=== PATIENT | female | born 1930 | race Caucasian/White ===

== ENCOUNTER → 2016-12-08 | Outpatient (CLI) | payer MEDICARE, BC ==
[~2016-12-08] MED LIST: TYLENOL 325MG325 MG PO
[2016-12-08 16:05] LABS: ADJUSTED CALCIUM 9.4 mg/dL (8.4-10.2); ALBUMIN 3.7 gm/dL (3.5-5.0); BILIRUBIN,TOTAL 1.3 mg/dL (0.0-1.0); CALCIUM 9.2 mg/dL (8.4-10.2); CREATININE, serum 0.9 mg/dL (0.52-1.25); POTASSIUM 3.7 mmol/L (3.4-5.0); TOTAL PROTEIN 7.2 gm/dL (6.4-8.2)
[2016-12-08 16:16] LABS: BASO # 0.1 (0.0-0.2); BASO % 0.6 % (0.0-2.0); EOS % 0.1 % (0-4.0); GRAN # 6.4 (1.4-6.5); GRAN % 74.6 % (42.2-75.2); HEMATOCRIT 38.2 % (37.0-47.0); LYMPH % 11.2 % (20.0-51.0); MEAN CELL VOLUME 95 fl (80.0-100.0); MEAN CORPUSCULAR HEMOGLOBIN 32 pg (27.0-31.0); MEAN CORPUSCULAR HGB CONC 34 g/dl (33.0-37.0); MEAN PLATELET VOLUME 10.6 fl (7.4-10.4); MONO # 1.1 (0.1-0.6); MONO % 12.6 % (1.7-9.3); PLATELET COUNT 130 K/mm3 (130-400); RED BLOOD COUNT 4.02 M/mm3 (4.10-5.30); REDCELL DISTRIBUTION WIDTH-CV 13.8 % (11.5-14.5); WHITE BLOOD COUNT 8.5 K/mm3 (4.8-10.8)
== END ==
LOC: COL.RAD 14:33
PROVIDERS: Nurse Practitioner Family
DX: Z02.89 Encounter for other administrative examinations (principal)

== ENCOUNTER 2016-12-09 17:57 | Inpatient (IN) | payer MEDICARE, BC ==
[~2016-12-09] VITALS: Ht 167.6 cm; Wt 67.9 kg
[2016-12-09 19:03] LABS: HEMATOCRIT 38.1 % (37.0-47.0); HEMOGLOBIN 13.1 g/dl (12.5-16.0); MEAN CELL VOLUME 93 fl (80.0-100.0); MEAN CORPUSCULAR HEMOGLOBIN 32 pg (27.0-31.0); MEAN CORPUSCULAR HGB CONC 34 g/dl (33.0-37.0); PLATELET COUNT 131 K/mm3 (130-400); RED BLOOD COUNT 4.08 M/mm3 (4.10-5.30); REDCELL DISTRIBUTION WIDTH-CV 13.5 % (11.5-14.5)
[2016-12-09 19:09] LABS: ADD PATHOLOGY DIFF REVIEW NO
[2016-12-09 19:12] LABS: HYALINE CAST >12 /lpf; PH 5 (5-8); URINE APPEARANCE Hazy; URINE BACTERIA Many /hpf; URINE BILIRUBIN Negative (NEGATIVE); URINE BLOOD 2+ (NEGATIVE); URINE COLOR Amber; URINE GLUCOSE Negative (NEGATIVE); URINE KETONE Negative (NEGATIVE); URINE RBC None Seen /hpf; URINE UROBILINOGEN >=4.0 mg/dL (NEGATIVE)
[2016-12-09 19:17] LABS: ADJUSTED CALCIUM 9.4 mg/dL (8.4-10.2); ALANINE AMINOTRANSFERASE 103 U/L (9-52); ALBUMIN 3.5 gm/dL (3.5-5.0); ALKALINE PHOSPHATASE 125 U/L (50-136); ANION GAP 14 mmol/L (7-16); BILIRUBIN,TOTAL 1.3 mg/dL (0.0-1.0); BLOOD UREA NITROGEN 19 mg/dL (7-17); CARBON DIOXIDE 22 mmol/L (22-30); CHLORIDE 96 mmol/L (98-107); CREATININE, serum 0.81 mg/dL (0.52-1.25); GLUCOSE 137 mg/dL (74-106); POTASSIUM 3.5 mmol/L (3.4-5.0); SODIUM 133 mmol/L (137-145); TOTAL PROTEIN 6.9 gm/dL (6.4-8.2)
[2016-12-09 19:28] LABS: TROPONIN-I < 0.012 ng/mL (0.000-0.034)
[2016-12-09 19:35] LABS: BAND 28 % (0-10); NEUTROPHILS 59 % (42.0-75.2); PLATELET ESTIMATE NORMAL (NORMAL); TOTAL CELLS COUNTED 100; TOXIC GRANULATION PRESENT
[2016-12-09 19:56] LABS: C-REACTIVE PROTEIN 12.6 mg/dL (0.0-0.9)
[2016-12-09 20:38] VITALS: BP 185/141; PULSE 95; TEMP 97.8
[2016-12-09 21:05] VITALS: BP 147/55; PULSE 89
[2016-12-09 21:51] LABS: B-TYPE NATRIURETIC PEPTIDE 584 pg/mL (0-450)
[2016-12-09] MEDS ORDERED: TYLENOL 325MG325 MG PO (21:55)
[2016-12-10] VITALS (8 sets, daily range): BP systolic 113–139; BP diastolic 47–78; PULSE 81–98; TEMP 97.9–101.8
[2016-12-10 07:27] LABS: CALCIUM 8.3 mg/dL (8.4-10.2); CREATININE, serum 0.8 mg/dL (0.52-1.25); POTASSIUM 3.2 mmol/L (3.4-5.0)
[2016-12-10 07:31] LABS: MEAN CELL VOLUME 95 fl (80.0-100.0); MEAN CORPUSCULAR HGB CONC 34 g/dl (33.0-37.0); MEAN PLATELET VOLUME 11.1 fl (7.4-10.4); PLATELET COUNT 109 K/mm3 (130-400); RED BLOOD COUNT 3.61 M/mm3 (4.10-5.30); REDCELL DISTRIBUTION WIDTH-CV 13.7 % (11.5-14.5); WHITE BLOOD COUNT 6.6 K/mm3 (4.8-10.8)
[2016-12-10 07:32] LABS: ADD PATHOLOGY DIFF REVIEW NO; HEMATOCRIT 34.2 % (37.0-47.0); HEMOGLOBIN 11.5 g/dl (12.5-16.0); MEAN CORPUSCULAR HEMOGLOBIN 32 pg (27.0-31.0)
[2016-12-10 09:50] LABS: BAND 19 % (0-10); EOSINOPHIL 1 % (0-4); METAMYELOCYTE 1 % (0-0); NEUTROPHILS 56 % (42.0-75.2); PLATELET ESTIMATE DECREASED (NORMAL); TOTAL CELLS COUNTED 100; TOXIC GRANULATION PRESENT
[2016-12-10 15:11] LABS: ALBUMIN 2.5 gm/dL (3.5-5.0); BILIRUBIN,DIRECT 0.8 mg/dL (0.0-0.4); TOTAL PROTEIN 5.4 gm/dL (6.4-8.2)
[2016-12-11 03:24] VITALS: BP 79/58; BP 79/5816; PULSE 99; TEMP 98.7
[2016-12-11 07:44] LABS: MEAN CELL VOLUME 94 fl (80.0-100.0); MEAN CORPUSCULAR HGB CONC 34 g/dl (33.0-37.0); MEAN PLATELET VOLUME 10.9 fl (7.4-10.4); PLATELET COUNT 120 K/mm3 (130-400); RED BLOOD COUNT 3.55 M/mm3 (4.10-5.30); REDCELL DISTRIBUTION WIDTH-CV 13.7 % (11.5-14.5); WHITE BLOOD COUNT 7.4 K/mm3 (4.8-10.8)
[2016-12-11 08:06] LABS: ADD PATHOLOGY DIFF REVIEW NO; HEMATOCRIT 33.4 % (37.0-47.0); HEMOGLOBIN 11.3 g/dl (12.5-16.0); MEAN CORPUSCULAR HEMOGLOBIN 32 pg (27.0-31.0)
[2016-12-11 08:13] LABS: CREATININE, serum 0.69 mg/dL (0.52-1.25); POTASSIUM 3.7 mmol/L (3.4-5.0)
[2016-12-11 08:30] VITALS: BP 101/70; PULSE 95; TEMP 98.2
[2016-12-11 09:45] LABS: BAND 28 % (0-10); NEUTROPHILS 60 % (42.0-75.2); TOTAL CELLS COUNTED 100
[2016-12-11 09:46] LABS: PLATELET ESTIMATE NORMAL (NORMAL)
[2016-12-11 17:56] VITALS: BP 161/80; PULSE 104; TEMP 101.3
[2016-12-11 17:59] LABS: CEREBROSPINAL TUBE #4; CSF APPEARANCE CLEAR; CSF COLOR OTHER
[2016-12-11 20:16] VITALS: BP 162/71; PULSE 110; TEMP 98.2
[2016-12-12] VITALS (7 sets, daily range): BP systolic 102–136; BP diastolic 48–90; PULSE 99–130; TEMP 97.2–100.2
[2016-12-13 04:27] VITALS: BP 112/58; PULSE 112; TEMP 100.7
[2016-12-13 07:38] LABS: MEAN CELL VOLUME 93 fl (80.0-100.0); MEAN CORPUSCULAR HGB CONC 34 g/dl (33.0-37.0); MEAN PLATELET VOLUME 12.2 fl (7.4-10.4); PLATELET COUNT 114 K/mm3 (130-400); RED BLOOD COUNT 3.67 M/mm3 (4.10-5.30); REDCELL DISTRIBUTION WIDTH-CV 14.2 % (11.5-14.5); WHITE BLOOD COUNT 9.6 K/mm3 (4.8-10.8)
[2016-12-13 08:02] VITALS: BP 104/65; PULSE 90; TEMP 97.6
[2016-12-13 08:02] LABS: HEMOGLOBIN 11.7 g/dl (12.5-16.0); MEAN CORPUSCULAR HEMOGLOBIN 32 pg (27.0-31.0)
[2016-12-13 08:03] LABS: ADD PATHOLOGY DIFF REVIEW NO
[2016-12-13 08:33] LABS: CALCIUM 8.1 mg/dL (8.4-10.2); CREATININE, serum 0.74 mg/dL (0.52-1.25); POTASSIUM 3.5 mmol/L (3.4-5.0)
[2016-12-13 12:02] VITALS: BP 154/94; PULSE 129; TEMP 97.4
[2016-12-13 12:16] LABS: BAND 24 % (0-10); EOSINOPHIL 2 % (0-4); NEUTROPHILS 60 % (42.0-75.2); PLATELET ESTIMATE DECREASED (NORMAL); TOTAL CELLS COUNTED 100
[2016-12-13 12:19] LABS: DOHLE BODIES PRESENT; TOXIC GRANULATION PRESENT
[2016-12-13 16:40] VITALS: BP 117/70; PULSE 122; TEMP 99.9
[2016-12-13 20:39] VITALS: BP 118/66; PULSE 114; TEMP 98.7
[2016-12-14] VITALS (7 sets, daily range): BP systolic 101–133; BP diastolic 55–80; PULSE 107–129; TEMP 97.4–100.3
[2016-12-14 09:22] LABS: MEAN CELL VOLUME 94 fl (80.0-100.0); MEAN CORPUSCULAR HGB CONC 34 g/dl (33.0-37.0); MEAN PLATELET VOLUME 12.1 fl (7.4-10.4); PLATELET COUNT 138 K/mm3 (130-400); RED BLOOD COUNT 3.63 M/mm3 (4.10-5.30); REDCELL DISTRIBUTION WIDTH-CV 14.3 % (11.5-14.5); WHITE BLOOD COUNT 11.4 K/mm3 (4.8-10.8)
[2016-12-14 09:24] LABS: HEMATOCRIT 34.1 % (37.0-47.0); HEMOGLOBIN 11.5 g/dl (12.5-16.0); MEAN CORPUSCULAR HEMOGLOBIN 32 pg (27.0-31.0)
[2016-12-14 09:25] LABS: ADD PATHOLOGY DIFF REVIEW NO
[2016-12-14 09:30] LABS: ADJUSTED CALCIUM 9.7 mg/dL (8.4-10.2); ALBUMIN 2.4 gm/dL (3.5-5.0); BILIRUBIN,TOTAL 1.3 mg/dL (0.0-1.0); CALCIUM 8.4 mg/dL (8.4-10.2); CREATININE, serum 0.87 mg/dL (0.52-1.25); POTASSIUM 3.9 mmol/L (3.4-5.0); TOTAL PROTEIN 5.7 gm/dL (6.4-8.2)
[2016-12-14 12:36] LABS: BAND 20 % (0-10); NEUTROPHILS 63 % (42.0-75.2); TOTAL CELLS COUNTED 100
[2016-12-14 12:37] LABS: ANISOCYTOSIS 1+; PLATELET ESTIMATE NORMAL (NORMAL); TOXIC GRANULATION PRESENT
[2016-12-14 20:16] LABS: WEST NILE VIRUS IGG PCR CSF Negative (Negative)
[2016-12-15 04:12] VITALS: BP 120/61; PULSE 117; TEMP 97.5
== END 2016-12-15 12:17 | disposition expired | DRG 871 ==
LOC: COL.ER 17:57 → MEDICAL 19:49
PROVIDERS: Emergency Medicine; Family Medicine; Internal Medicine; Psychiatry & Neurology Neurology
PROC: 009U3ZX Drainage of Spinal Canal, Percutaneous Approach, Diagnostic (ICD-10-PCS; principal; 2016-12-11)
DX: A41.9 Sepsis, unspecified organism (principal); G03.0 Nonpyogenic meningitis; F05 Delirium due to known physiological condition; E87.6 Hypokalemia; Z66 Do not resuscitate
CPT/HCPCS: 99222-AI; 99232-AI; 99233-AI; 99238; C1751; J0133; J0692; J0696; J1644; J1650; J2060; J3370; J3480; J7030; J7050